=== PATIENT | female | born 1990 ===

== ENCOUNTER 2021-12-18 15:02 | Emergency (ER) | payer OTHER ==
[2021-12-18 15:09] VITALS: BP 132/77
[2021-12-18] MEDS ORDERED: KETOROLAC 60 MG/2 ML INJ IM ONE (16:43)
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
== END 2021-12-18 22:11 | disposition home or self-care (01) ==
LOC: ED 15:02
DX: S39.012A Strain of muscle, fascia and tendon of lower back, initial encounter (principal); V83.5XXA Driver of special industrial vehicle injured in nontraffic accident, initial encounter; Y93.89 Activity, other specified; Y92.89 Other specified places as the place of occurrence of the external cause; Y99.0 Civilian activity done for income or pay
CPT/HCPCS: 72100; 96372; 99283; J1885